=== PATIENT | male | born 1980 | race Caucasian/White ===

== ENCOUNTER 2020-04-21 09:46 | Emergency (ER) | payer OTHER ==
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
--- NOTE | 2020-04-21 10:57 | CR ---
Right hand: 3 views of the right hand were obtained. Comparison: No previous right hand exam. Minimally displaced and minimally angulated fracture is identified within the base of the proximal phalanx of the right 5th digit. Joint spaces are preserved. No additional fracture or other bony abnormality is appreciated. Impression: 1. 5th finger fracture as described above. Diagnostic code #3 This report was dictated in MDT
== END 2020-04-21 11:02 | disposition home or self-care (01) ==
LOC: MW.ED 09:46
DX: S62.616A Displaced fracture of proximal phalanx of right little finger, initial encounter for closed fracture (principal); W22.8XXA Striking against or struck by other objects, initial encounter; Y93.75 Activity, martial arts
CPT/HCPCS: 29125; 73130-26-RT; 73130-RT; 99282; 99283-25